=== PATIENT | male | born 1975 | race Caucasian/White ===

== ENCOUNTER → 2016-08-29 | Outpatient (CLI) | payer BC ==
[~2016-08-29] MED LIST: CIPRO 500MG TA500 MG PO; ETODOLAC200 MG PO; FLAGYL500 M1 PO; NOMEDS
--- NOTE | 2016-08-29 10:09 | RADIOLOGY REPORT PS360 ---
US RUQ-(ABD LTD)1ORGAN/QUAD/FU HISTORY: RUQ PAIN ORDERING PHYSICIAN: Israel Jean MD PATIENT AGE: 40 years COMPARISON: None FINDINGS: PANCREAS:Unremarkable. No obvious mass or abnormal fluid collection. No ductal dilatation LIVER:No focal liver lesions demonstrated. Homogeneous echogenicity. No intrahepatic biliary ductal dilatation evident RIGHT KIDNEY:Unremarkable. Normal size and echogenicity. No hydronephrosis GALLBLADDER:There is mild nonspecific thickening of the gallbladder wall measuring up to 4 mm. No shadowing stones are evident. There is a small amount sludge. No pericholecystic fluid. Common bile duct is normal at 3 mm. IMPRESSION: 1. Mild nonspecific gallbladder wall thickening with a small amount of gallbladder sludge. 2. No stones or biliary dilatation.
== END ==
LOC: RAD 07:51
DX: R10.9 Unspecified abdominal pain (principal)